=== PATIENT | male | born 1950 | race Caucasian/White ===

== ENCOUNTER 2021-02-15 10:14 | Emergency (ER) | payer MEDICARE, OTHER ==
[~2021-02-15 10:14] MED LIST: 3IN1 COMMODE; ACIDOPHILUS LA1 EAC1 PO; CIPRO500 MG PO; FLOMAX 0.4 MG0.4 MG PO; LIDOCAINE 5% P1 EACH TOP; LOSARTAN-HCTZ1 EAC2 PO; MEDROL 4MG DOSEP4 MG PO; NAPROXEN500 MG PO; NEURONTIN300 MG PO; ZOVIRAX800 MG PO; [UNRECOGNIZED DRUG - OTHER] PO; [UNRECOGNIZED DRUG - OTHER] PO
== END 2021-02-15 11:49 | disposition home or self-care (01) ==
LOC: FER 10:14
DX: R04.0 Epistaxis (principal); J34.89 Other specified disorders of nose and nasal sinuses; I10 Essential (primary) hypertension; F17.200 Nicotine dependence, unspecified, uncomplicated

== ENCOUNTER 2021-02-18 06:50 | Emergency (ER) | payer MEDICARE, OTHER | END 2021-02-18 09:27 | disposition home or self-care (01) | LOC: FER 06:50 | DX: L98.9 Disorder of the skin and subcutaneous tissue, unspecified (principal); R58 Hemorrhage, not elsewhere classified; F17.290 Nicotine dependence, other tobacco product, uncomplicated ==